=== PATIENT | female | born 1950 | race Caucasian/White ===

== ENCOUNTER 2017-04-20 09:50 | Outpatient (CLI) | payer MEDICARE ==
[~2017-04-20] VITALS: Ht 154.9 cm; Wt 52.6 kg
[2017-04-20] MEDS ORDERED: RT-ALBUINH IH (13:43)
[2017-04-20] MEDS ORDERED: HYDR-3812 PO (13:43)
[2017-04-20] MEDS ORDERED: DOCU100T7 PO (13:43)
[2017-04-20] MEDS ORDERED: BUDE10.2 IH (13:43)
[2017-04-20] MEDS ORDERED: OMEP40CA36 PO (13:43)
[2017-04-20] MEDS ORDERED: AMLO5TAB2 PO (13:43)
[2017-04-20] MEDS ORDERED: ALPR0.5T7 PO (13:43)
[2017-04-21] MEDS ORDERED: HYDR-3816 PO (16:19)
== END 2017-04-20 14:05 ==
LOC: PREOP 09:50
PROVIDERS: ATTEND Surgery
DX: Z01.818 Encounter for other preprocedural examination; K80.20 Calculus of gallbladder without cholecystitis without obstruction

== ENCOUNTER 2017-04-21 12:03 | Day surgery (SDC) | payer MEDICARE, OTHER ==
[~2017-04-21] VITALS: Ht 154.9 cm; Wt 52.6 kg
[~2017-04-21 12:03] MED LIST: ALPR0.5T7 PO; AMLO5TAB2 PO; BUDE10.2 IH; DOCU100T7 PO; HYDR-3812 PO; OMEP40CA36 PO; RT-ALBUINH IH
--- OUTSIDE RECORDS SUMMARY | 2017-04-21 12:06 | XMS REPORT | Continuity of Care Document ---
Author Author [facility] Address Unknown Phone Unavailable Allergies Active Description Code Type Severity Reaction Onset Reported/Identified Relationship to Patient Clinical Status Yes MRI contrast media Drug Allergy 09/14/2012 Medications Problems Date Dx Coded Attending Type Code Diagnosis Diagnosed By 09/14/2012 786.2 cough 09/14/2012 BRI BARTHOLOMEW MD 786.2 cough 09/14/2012 PAVITHRA RICHEY MD 786.2 COUGH 06/27/2013 BRI BARTHOLOMEW MD 508.9 RESPIRATORY CONDITIONS DUE TO UNSPECIFIED EXTERNAL AGENT 06/27/2013 BRI BARTHOLOMEW MD 706.2 SEBACEOUS CYST 06/27/2013 BRI BARTHOLOMEW MD 784.91 POSTNASAL DRIP 06/27/2013 PAVITRHA RICHEY MD 508.9 RESPIRATORY CONDITIONS DUE TO UNSPECIFIED EXTERNAL AGENT 06/27/2013 PAVITHRA RICHEY MD 706.2 SEBACEOUS CYST 06/27/2013 PAVITHRA RICHEY MD 784.91 POSTNASAL DRIP 09/05/2014 PAVITHRA RICHEY MD 719.45 PAIN IN JOINT INVOLVING PELVIC REGION AND THIGH 09/05/2014 PAVITHRA RICHEY MD N 780.8 GENERALIZED HYPERHIDROSIS 09/05/2014 PAVITHRA RICHEY MD 782.3 EDEMA Procedures Code [place] [address] ROUTINE VENIPUNCTURE 09/05/2014 68205 CBC 09/05/2014 Results Encounters ACCT No. Visit Date/Time Discharge Status Pt. Type Provider Facility Loc./Unit Complaint [id number] 09/05/2014 14:30:00 09/05/2014 23: 59:59 CLS Outpatient PAVITHRA RICHEY MD [id number] 06/27/2013 16:43:00 06/27/2013 23: 59:59 CLS Outpatient BRI BARTHOLOMEW MD [id number] 09/14/2012 12:44:00 09/14/2012 23: 59:59 CLS Outpatient
[2017-04-21 12:24] VITALS: BP 136/62
[2017-04-21] MEDS ORDERED: FAMOTIDINE 20MG/2ML IV (PEPCID) ONE (12:29)
[2017-04-21] MEDS ORDERED: ceFAZolin 1 GM/NS 50 ML IVPB IV ONE ×2 (12:30)
[2017-04-21] MEDS ORDERED: LACTATED RINGERS 1,000 ML IV ONE ×2 (13:28→15:40)
[2017-04-21] MEDS ORDERED: ONDANSETRON 4 MG/2 ML (SDV) Z0FRAN ONE (13:28)
[2017-04-21] MEDS ORDERED: DEXAMETHASONE 10 MG/ML (DECADRON) 1 ML VIAL ONE (13:28)
[2017-04-21] MEDS ORDERED: LIDOCAINE PF 2% 5 ML (XYLOCAINE) VIAL ONE (13:28)
[2017-04-21] MEDS ORDERED: SEVOFLURANE (ULTANE) 15 ML INHAL SOLN ONE ×2 (13:28→15:40)
[2017-04-21] MEDS ORDERED: proPOfol 200 MG/20 ML (DIPRIVAN) VIAL IV ONE (13:28)
[2017-04-21] MEDS ORDERED: ROCURONIUM 50 MG/5 ML (ZEMURON) VIAL IV ONE (13:28)
[2017-04-21] MEDS ORDERED: MIDAZOLAM 2 MG/2 ML (VERSED) VIAL ONE (13:29)
[2017-04-21] MEDS ORDERED: fentaNYL INJECTION 100 MCG/2 ML AMP ONE ×2 (13:29→15:32)
[2017-04-21] MEDS ORDERED: BUP/EPI 0.5% 1:200,000 (MARCAINE) 10ML VIAL IJ ONE (13:29)
--- NOTE | 2017-04-21 15:07 | Progress Note-Pre Operative ---
Pre-Operative Progress Note H&P Reviewed The H&P was reviewed, patient examined and no changes noted. Date Seen by Provider: Apr 21, 2017 Time Seen by Provider: 14:00 Date H&P Reviewed: Apr 21, 2017 Time H&P Reviewed: 14:00 Pre-Operative Diagnosis: chronic calculous cholecystitis. CLIVE YBARRA MD Apr 21, 2017 3:07 pm
[2017-04-21] MEDS ORDERED: ONDANSETRON 4 MG/2 ML (SDV) Z0FRAN IVP PRN ×2 (15:15→16:15)
[2017-04-21] MEDS ORDERED: morphine INJ 10 MG/ML 1ML (SYR OR VIAL) IVP PRN (15:15)
[2017-04-21] MEDS ORDERED: HYDROcodone/APAP 5 MG/325 MG (LORTAB) TAB PO ONE (15:15)
[2017-04-21] MEDS ORDERED: ACETAMINOPHEN 325 MG TABLET/CAPLET (TYLENOL) PO PRN (15:15)
[2017-04-21] MEDS ORDERED: morphine INJ 10 MG/ML 1ML (SYR OR VIAL) ONE (15:27)
[2017-04-21] MEDS ORDERED: LABETALOL HCL 20 MG/4 ML VIAL ONE (15:39)
[2017-04-21] MEDS ORDERED: LACTATED RINGERS 1,000 ML IV PRN (16:09)
--- NOTE | 2017-04-21 16:17 | Progress Note-Post Operative ---
Post-Operative Progess Note Surgeon (s)/Director Of Strategic Sales (s) Surgeon CLIVE YBARRA MD Director Of Strategic Sales: rosie de los [employer]antos TECHNOLOGY LEAD Pre-Operative Diagnosis chronic calculous cholecystitis. Post-Operative Diagnosis same Procedure & Operative Findings Date of Procedure 04/21/17 Procedure Performed/Findings laparoscopic cholecystectomy Anesthesia Type GET Estimated Blood Loss Estimated blood loss (mL): minimal Specimens/Packing Specimens Removed gallbladder CLIVE YBARRA MD Apr 21, 2017 4:17 pm
[2017-04-21] MEDS ORDERED: HYDR-3816 PO (16:19)
--- NOTE | 2017-04-21 16:20 | Discharge Inst-Surgical ---
D/C Lap Instructions-AMADA New, Converted, or Re-Newed RX: RX on Chart Follow Up Appt in 2 weeks Activity as tolerated No driving for 24 hours No driving while on pain medications Incentive Spirometry use every 2 hours while awake Regular Diet Symptoms to Report: Fever over 101 degree F, Nausea/Vomiting Infection Signs and Symptoms to report: Increased redness, Foul odor of wound, Increased drainage Bathing instructions: May shower Operative Area Clean/Dry; Keep incision clean/dry If any problems/questions: Contact your physician or go to Emergency Room CLIVE YBARRA MD Apr 21, 2017 4:20 pm
[2017-04-21] MEDS: morphine INJ 10 MG/ML 1ML (SYR OR VIAL) IVP PRN ×2 (16:32→16:37)
[2017-04-21 17:15] VITALS: BP 90/69
[2017-04-21 17:45] VITALS: BP 151/60
[2017-04-21 18:15] VITALS: BP 166/65
[2017-04-21 18:46] VITALS: BP 166/65
--- NOTE | 2017-04-22 05:08 | OPERATIVE REPORT ---
DATE OF SERVICE: 04/21/2017 ATTENDING PHYSICIAN: Dr. Coello. PREOPERATIVE DIAGNOSIS: Symptomatic, chronic calculous cholecystitis. POSTOPERATIVE DIAGNOSIS: Symptomatic, chronic calculous cholecystitis. PROCEDURE: Laparoscopic cholecystectomy. SURGEON: Laith Nolan MD APPLICATION LEAD: Mihir Concepcion APRN ANESTHESIA: General endotracheal. ESTIMATED BLOOD LOSS: Minimal. FINDINGS: Chronic gallbladder wall inflammation with multiple large gallstones. DISPOSITION: The patient tolerated the procedure well. The patient is a 66-year-old female who was seen at [facility] on 07/05/2016. She presented with exacerbation of chronic obstructive pulmonary disease including cough and worsening sputum production. She was also found to have slight elevation of liver function enzymes and ultrasound performed which did show large gallstones, however, no signs of cholecystitis. She was seen in the office on 07/14/2016 at that time again had a cough and sputum production, however, this was improving. It was decided, due to her respiratory status to hold off on surgery until her lungs had improved. When seen recently in the office, she had recovered from her pneumonia, however, did have worsening pain in the right upper abdominal quadrant with radiation towards the back, usually after meals. She was also seen in the Emergency Department, started on a clear liquid diet as well as pain medication. This was consistent with a chronic calculous cholecystitis. The patient was brought to the operating room and laid supine on the table. After adequate IV pain and sedative medications and general endotracheal intubation, the abdomen was prepped and draped in the standard surgical fashion. 0.5% Marcaine with epinephrine was then used to anesthetize the overlying skin in the left upper abdominal quadrant. A small transverse skin incision was made using a 15 blade. An 0 silk suture was applied to the medial aspect of the incision for retraction and a Veress needle inserted with a low opening pressure of 0 mmHg. The abdomen was then insufflated with 15 mmHg pressure. The Veress needle removed and a 5 mm Xcel trocar placed followed by a 5 mm 45 degree angle laparoscope to visualize the peritoneal cavity. A 4 quadrant abdominal exploration was performed. There was mild gallbladder wall dilatation and inflammation. What was visualized of the remainder of the liver, small bowel, omentum and stomach appeared normal. Under direct visualization we then proceeded to place a supraumbilical 10 mm port after the skin and peritoneum were anesthetized using 0.5% Marcaine with epinephrine and a transverse skin incision was made using a 15 blade. In a similar manner, a right upper abdominal quadrant 5 mm port was placed. The patient was then placed in reverse Trendelenburg position as well plane right side up and left side down. The fundus of the gallbladder was then retracted anteriorly and superiorly. The hepatoduodenal ligament was then opened using electrocautery on the hook instrument as well as blunt dissection. The entire critical view of safety was identified including the triangle of Calot, including the cystic duct and artery going into the gallbladder as well as the liver behind the proximal gallbladder. A timeout was then taken and the cystic duct and artery were then clipped proximally, distally and cut with EndoShears. The gallbladder was then dissected off the liver bed using electrocautery on the hook instrument with visualization of good hemostasis as well as no leaking ducts of Luschka. The gallbladder was removed through the 10 mm port site using an EndoCatch bag. The 10 mm port fascia and peritoneum were then closed under direct visualization using a Angel Luis-Toyin device and an 0 Vicryl suture. The abdomen was desufflated and the remaining ports were removed. All skin incisions were closed using 4-0 Monocryl running subcuticular stitches. The wounds were then cleaned and covered with Dermabond. The patient tolerated the procedure well and will start IV and oral pain medication as well as clear liquid diet. Once she is tolerating food with good pain control with oral pain medication and is ambulating well, we will discharge her home. We will have her followup in the office in approximately 2 weeks. Job ID: [id number] DocumentID: [id number] Dictated Date: 04/21/2017 16:16:18 Financial Cost Analyst Date: 04/22/2017 05:07:31 Dictated By: MD JOHAN MALDONADO
== END 2017-04-21 18:45 | disposition home or self-care (01) ==
LOC: SDC 12:03
PROVIDERS: ATTEND Surgery
DX: K80.10 Calculus of gallbladder with chronic cholecystitis without obstruction (principal); J44.9 Chronic obstructive pulmonary disease, unspecified; I10 Essential (primary) hypertension; M19.91 Primary osteoarthritis, unspecified site; F17.210 Nicotine dependence, cigarettes, uncomplicated; Z79.899 Other long term (current) drug therapy
CPT/HCPCS: 87081; 88304; 94664

== ENCOUNTER 2018-01-27 14:20 | Outpatient (RCR) | payer MEDICARE, OTHER ==
[~2018-01-27 14:20] MED LIST changes: +ACHD5005 PO; -AMLO5TAB2 PO; +AMLO5TAB7 PO; +HYDR-34 PO; -HYDR-3812 PO
== END 2018-04-18 | disposition home or self-care (01) ==
LOC: ONC 14:20
PROVIDERS: ATTEND Internal Medicine Hematology & Oncology
DX: C25.0 Malignant neoplasm of head of pancreas (principal); C24.0 Malignant neoplasm of extrahepatic bile duct; J44.9 Chronic obstructive pulmonary disease, unspecified; I10 Essential (primary) hypertension; F17.210 Nicotine dependence, cigarettes, uncomplicated
CPT/HCPCS: 99213